=== PATIENT | female | born 1965 | race Caucasian/White ===

== ENCOUNTER 2018-11-07 17:13 | Emergency (ER) | payer MEDICAID ==
[~2018-11-07] VITALS: Ht 154.9 cm; Wt 93.4 kg
[2018-11-07 17:37] VITALS: BP_SYST 160
--- NOTE | 2018-11-07 19:30 | NUR ---
Ambulatory to bed 8
--- NOTE | 2018-11-07 19:35 | NUR ---
Patient arrived via POV, AAOx4, and ambulatory with steady gait. Patient non lithuanian speaking, family at bedside for exam. Patient c/c of right knee pain. Per patient, she fell at work on 10/26/18, 12 days ago. She was seen by RN, and sent to urgent care. Instructed to place heat and ice on knee for relief. Patient states 1 week ago she used the heat pack and sustained burning, redness, and blister. She returned to urgent care and was given an aloe vera cream with no relief. Current pain is 7/10, isolated to right knee. She has taken tylenol with no relief, last dose was 7 days ago. Will continue to follow up and monitor.
--- NOTE | 2018-11-07 19:58 | NUR ---
ER at bedside examining patient.
[2018-11-07 20:17] VITALS: BP_SYST 150
--- NOTE | 2018-11-07 20:17 | NUR ---
Patient given written and verbal discharge instructions and verbalizes understanding. ER MD discussed with patient the results and treatment provided. Patient in stable condition. ID arm band removed. Rx Keflex, Bacitracin, Motrin given. Patient educated on pain management and to follow up with PMD. Pain Scale 7/10, prescription given for pain management. Patient and family verbalized understanding. Opportunity for questions provided and answered. Medication side effect fact sheet provided.
== END 2018-11-07 20:17 | disposition home or self-care (01) ==
LOC: SED 17:13
DX: T24.221A Burn of second degree of right knee, initial encounter (principal); X08.8XXA Exposure to other specified smoke, fire and flames, initial encounter; Y93.89 Activity, other specified; Y92.89 Other specified places as the place of occurrence of the external cause; Y99.8 Other external cause status
CPT/HCPCS: 73564; 99283; 99284